=== PATIENT | female | born 1965 | race Caucasian/White ===

== ENCOUNTER → 2016-08-13 | Outpatient (CLI) | payer OTHER ==
[~2016-08-13] MED LIST: ALPRAZOLAM PO; ATARAX PO; BAYER CHEWABLE81 MG PO; BENZONATATE PO; BLACK COHOSH540 MG PO; BUSPAR PO; CHEWABLE ASPIRI81 MG; CRESTOR10 MG PO; ESTRACE2 MG PO; HAIR, SKIN & N1 EAC2 PO; HYCODAN60 ML 5MG/ PO; HYDROCHLOROTHIA25 GM; IBUPROFEN800 MG PO; LEXAPRO PO; LIPITOR; LIPITOR20 MG DOB; LIPO-FLAVONOID1 EACH PO; LISINOPRIL-HCTZ1 T15 PO; MIRAPEX0.125 MG PO; NEURONTIN100 MG; NEURONTIN100 MG PO; NO MEDICATIONS; NORCO1 TAB 10/3 PO; PHENERGAN25 MG PO; PREDNISONE10 MG/DOSE PO; PRILOSEC40 MG PO; PROTONIX; PROTONIX PO; PROZAC; PROZAC PO; REGLAN PO; TRIAMCINOLONE AC1 GM TOP; VITAMIN D1000 UNI2 PO; XANAX0.5 M1; ZANTAC PO; ZOFRAN PO
--- NOTE | ~2016-08-13 | MY6 ---
[facility]. [facility] A Service of [facility] & [facility] RADIOLOGY TEXT RESULTS PATIENT: JAVIER AVENDAÑO LOCATION: [facility] : 61 UNIT #: [id number] AGE: [address]: CRISS LANDA APRN SEX: F ORDER DR: [id number] [facility] [address] [place], [place] [address] [id number] O MR#: [id number] Acc #: [id number] NAME: JAVIER AVENDAÑO : 1965 SEX: F STUDY DATE/TIME: 08/13/2016 10:13 UNIT: [facility] ROOM: STUDY DESCRIPTION: MY Mammogram Dx Dig Kevin Attending Physician: Criss Landa Aprn Referring Physician: Nuria Pisano A.P.R.N. Ordering Physician: Criss Landa Aprn Primary Care Physician: Nuria Pisano A.P.R.N. MEDICAL IMAGING REPORT This report is preliminary unless electronic signature is present EXAM Bilateral digital diagnostic mammogram with CAD, 08/13/16 INDICATIONS 51-year-old female returning for a follow up of microcalcifications in the right breast. No current problems and no personal or family history of breast cancer. No surgeries. TECHNIQUE Screening views were obtained on the left. Diagnostic views were obtained on the right along with spot magnification MLO and spot magnification exaggerated CC lateral and standard exaggerated CC lateral views of the right breast. COMPARISON 06/22/2015, 05/25/2015, and prior studies dating back to 2010. FINDINGS The calcifications in the upper outer posterior right breast are unchanged for technical factors compared to the prior studies over the past greater than 1 year. Some of the calcifications can be seen on prior imaging studies dating back to 2010. No interval progression or interval occurring mass associated with the calcifications. Imaging features most likely reflects sequela of fat necrosis as previously described. There is no new dominant nodule, mass or suspicious clustered microcalcifications in either breast. No new adenopathy. Axillary node on the right unchanged dating back to at least 2013. Absent new or worsening symptoms in either breast, the patient should return for repeat screening mammogram in 1 year. Findings and recommendations were discussed with the patient. She voiced understanding [facility] A Service of [facility] & [facility] RADIOLOGY TEXT RESULTS PATIENT: JAVIER AVENDAÑO [id number] : 61 UNIT #: [id number] AGE: [address]: CRISS LANDA APRN SEX: F ORDER DR: agreement. IMPRESSION 1. Calcifications in the posterior upper outer right breast are unchanged over greater than a year. Return to annual screening regimen is recommended. Findings were discussed with the patient. Patients over the age of 40 are entered into a reminder system with target due date for the next mammogram. A result letter will also be sent to the patient. BIRADS: 2 - benign findings Dictated by... Kristofer Garcia M.D. THIS IS AN ELECTRONICALLY VERIFIED REPORT Kristofer Garcia M.D. at 08/13/2016 4:59 PM ROWDY/james TD: 08/13/2016 11:30 JOB #: [id number] MEDICAL IMAGING REPORT Page 1 of 1 COPY
== END | disposition home or self-care (01) ==
LOC: CMAM 09:44
DX: R92.8 Other abnormal and inconclusive findings on diagnostic imaging of breast (principal); R92.1 Mammographic calcification found on diagnostic imaging of breast
CPT/HCPCS: G0204